=== PATIENT | male | born 1985 | race Caucasian/White ===

== ENCOUNTER 2021-02-06 09:22 | Outpatient (REF) | payer MEDICAID, SELFPAY ==
[2021-02-06 10:41] LABS: C Diff PCR Negative (Negative)
== END 2021-02-06 09:23 | disposition home or self-care (01) ==
LOC: LBN 09:22
PROVIDERS: Visit Provider Surgery
DX: K21.9 Gastro-esophageal reflux disease without esophagitis (principal); K29.80 Duodenitis without bleeding; K57.32 Diverticulitis of large intestine without perforation or abscess without bleeding
CPT/HCPCS: 87493

== ENCOUNTER 2021-04-09 12:52 | Emergency (ER) | payer MEDICAID, SELFPAY ==
[2021-04-09 12:57] VITALS: BP 151/86; PULSE 80; RESP 16; O2SAT 98
--- NOTE | 2021-04-09 14:24 | ED.GENADUL_ITS ---
Discharge Plan Disposition Patient Disposition: HOME Condition: Good Discharge Details Clinical Impression: Injury of left shoulder Primary Care Provider: Krystian Ervin ED Provider: Chayo Rosales Home Meds and New Rx's Prescriptions: No Action pantoprazole [Protonix] 40 mg tablet,delayed release (DR/EC) 40 mg PO DAILY Qty: 30 RF: 12 sucralfate [Carafate] 1 gram tablet 1 g PO QACHS Qty: 120 RF: 12 Bio-K plus 50 billion cell capsule,delayed release(DR/EC) 1 cap PO DAILY Qty: 30 RF: 12 celecoxib [Celebrex] 400 mg Capsule 400 mg PO DAILY RF: 0 pregabalin [Lyrica] 75 mg Capsule 75 mg PO TID RF: 0 Discharge Instructions Instructions: Shoulder Sprain (ED) Additional Instructions: You may apply Voltaren gel topically to the area of tenderness Continue to range shoulder so it does not become stiff Negative listed orthopedics need to follow-up with, try not to engage in any repetitive motion Return earlier should you develop new or worsening complaints including strength change, worsening paresthesias Referrals: Richard Loving MD [ [facility] STAFF PHYSICIAN] - Discharge Data Discharge Date/Time-TO BE ENTERED AT DEPARTURE: 04/09/21 15:10 Medical Decision Making Patient without acute abnormality on x-ray, referred to orthopedics per radiology interpretation of my review negative x-ray Declined sling No indication for emergent MRI, no weakness or concerning pathology for cervical trauma at this time Ibuprofen and Tylenol as needed for pain tolerated Repeat imaging or evaluation in 1 week with persistent symptoms recommended Work note supplied Neurologically intact aside from mildly diminished sensation which sounds like baseline for patient No worrisome findings on my exam today will need outpatient reevaluation Distal pulses intact bilateral upper extremities Differential Diagnosis Differential Diagnosis: Fracture, cervical strain, cervical radiculopathy, shoulder fracture HPI General Mode of arrival: ambulatory . Date/Time Provider Initiated Documentation: 04/09/21 13:03 . Limitations to Documentation: no limitations . Information obtained by: patient . HPI Narrative: This 35-year-old male presents with left shoulder pain with radiation into his left arm. He denies any chest pain or shortness of breath. He denies dizziness or weakness. He has a history of cervical radiculopathy, he states that he has slight increase paresthesias to his left arm. He states the majority of his pain is around the AC joint and left shoulder. He states his arm feels more uncomfortable if he ranges it. He denies any additional complaints. Denies any chest pain shortness of breath, dizziness, weakness, nausea vomiting Related Data Home Medications Medication Instructions Recorded Confirmed L. acidophilus,casei,rhamnosus 50 1 cap PO DAILY #30 cap 02/05/21 02/05/21 billion cell capsule,delayed release pantoprazole 40 mg tablet,delayed 40 mg PO DAILY #30 tab 02/05/21 04/09/21 release sucralfate 1 gram tablet 1 g PO QACHS #120 tab 02/05/21 04/09/21 celecoxib [Celebrex] 400 mg PO DAILY 04/09/21 04/09/21 pregabalin [Lyrica] 75 mg PO TID 04/09/21 04/09/21 Previous Rx's Medication Instructions Recorded L. acidophilus,casei,rhamnosus 50 1 cap PO DAILY #30 cap 02/05/21 billion cell capsule,delayed release pantoprazole 40 mg tablet,delayed 40 mg PO DAILY #30 tab 02/05/21 release sucralfate 1 gram tablet 1 g PO QACHS #120 tab 02/05/21 Allergies Allergy/AdvReac Type Severity Reaction Status Date / Time acetaminophen [From [place]] Allergy insomnia Verified 04/09/21 13:02 cortisone Allergy prolonged Verified 04/09/21 13:02 burning after injection hydrocodone [From [place]] Allergy insomnia Verified 04/09/21 13:02 General Stated Complaint: Orthopedic VERENICE: 3 Review of Systems Narrative: Review of systems obtained x7 aside from where indicated in [facility] Social History (Updated 02/05/21 @ 13:25 by Kaylin Monroe RN, RN) Smoking/Tobacco Use Status: Never Smoking risk assessment performed?: Yes Alcohol Intake: current Alcohol Intake frequency: holidays/special occasions only Drug use: Never Substance use type: does not use Do you feel safe at home: Yes Do you feel safe in your relationship?: Yes Exam Const General: cooperative, comfortable and no acute distress Neck Other: no midline tenderness, no paraspinal tenderness Resp Effort & Inspection: normal respiratory effort Cardio Rate: regular rate Neuro General: patient alert and patient oriented x3 Other: DTRs intact bilateral upper extremities, sensation mildly diminished to left forearm and bicep region Hand grasp intact bilaterally Strength intact bilaterally to upper extremities emergently Extrem Other: Mild tenderness to left clavicle, AC joint region, and over the long head of biceps tendon, negative empty can sign, no visible swelling or evidence of trauma, no erythema Distal pulses intact all extremities Course Vital Signs Vital signs: Vital Signs Pulse 80 04/09/21 12:57 Respiratory Rate 16 04/09/21 12:57 Blood Pressure 151/86 H 04/09/21 12:57 Pulse Oximetry 98 04/09/21 12:57 Pulse 80 04/09/21 12:57 Respiratory Rate 16 04/09/21 12:57 Respiratory Effort Non-Labored 04/09/21 13:06 Blood Pressure 151/86 H 04/09/21 12:57 Blood Pressure Position Sitting 04/09/21 12:57 Pulse Oximetry 98 04/09/21 12:57 Oxygen Delivery Method Room Air 04/09/21 12:57 Oxygen Flow Rate 0 04/09/21 12:57 Pain Level 7 04/09/21 12:57
--- NOTE | 2021-04-09 14:51 | DI.RAD_ITS ---
Exam(s) XR SHOULDER LT COMPLETE 2+V EXAM: XR SHOULDER LT COMPLETE 2+V CLINICAL HISTORY: left shoulder pain. TECHNIQUE: 2D digital imaging was performed. COMPARISON: No exams were available for comparison FINDINGS: There is no evidence of fracture or dislocation or abnormal soft tissue calcifications. No degenerat vickey changes in the glenohumeral and AC joints. Visualized humerus appears unremarkable. AC joint ap pears unremarkable and there is no ipsilateral clavicle fracture. IMPRESSION: No fracture evident DATA REPOSITORY: RADIATION DOSE DELIVERED:
[2021-04-09 15:05] VITALS: BP 137/86; PULSE 80; RESP 16; TEMP 36.4; O2SAT 97
== END 2021-04-09 15:10 | disposition home or self-care (01) ==
PROVIDERS: Emergency Provider Physician Assistant; PCP Physician Assistant
DX: S49.82XA Other specified injuries of left shoulder and upper arm, initial encounter (principal); X50.9XXA Other and unspecified overexertion or strenuous movements or postures, initial encounter; R20.2 Paresthesia of skin
CPT/HCPCS: 99283; 73030

== ENCOUNTER 2021-05-18 04:47 | Outpatient (CLI) | payer MEDICAID, SELFPAY ==
--- NOTE | 2021-05-18 09:00 | DI.MRI_ITS ---
Exam(s) MR UPPER JOINT LT WO EXAM: MR UPPER JOINT LT WO CLINICAL HISTORY: INJURY, LT SHOULDER PAIN, M25.512,[id number]. TECHNIQUE: Multiplanar multisequence MRI was performed. COMPARISON: Plain films 09 April 2021 FINDINGS: BONES: There is no fracture or contusion pattern. JOINTS: The acromioclavicular joint is normal. The glenohumeral joint is normal. TENDONS: Supraspinatus: Thickening and edema in the anterior portion of the tendon. No focal tear.. Infraspinatus: Unremarkable. Subscapularis: Unremarkable. Teres [place]: Unremarkable. Biceps and [place]: Unremarkable. MUSCLES: Unremarkable. No atrophy. GLENOID LABRUM: Unremarkable on this noncontrast examination. SOFT TISSUES: Unremarkable. OTHER: Subacromial and subdeltoid bursae show mild edema. IMPRESSION: Tendinosis of the anterior supraspinatus tendon. DATA REPOSITORY:
== END 2021-05-18 05:07 ==
PROVIDERS: PCP Physician Assistant; Visit Provider Student in an Organized Health Care Education/Training Program
DX: M67.814 Other specified disorders of tendon, left shoulder; S49.92XA Unspecified injury of left shoulder and upper arm, initial encounter; X58.XXXA Exposure to other specified factors, initial encounter
CPT/HCPCS: 73221

== ENCOUNTER 2021-07-09 17:02 | Emergency (ER) | payer MEDICAID, SELFPAY ==
[2021-07-09 17:05] VITALS: BP 135/90; PULSE 82; RESP 16; TEMP 36.8; O2SAT 98
--- NOTE | 2021-07-09 17:11 | ED.GENADUL_ITS ---
Discharge Plan Disposition Patient Disposition: HOME Condition: Stable Discharge Details Clinical Impression: Paronychia, Cellulitis Primary Care Provider: Krystian Ervin ED Provider: Kadie Merlos Home Meds and New Rx's Prescriptions: New cephalexin 500 mg capsule 500 mg PO BID Qty: 10 RF: 0 Continued pantoprazole [Protonix] 40 mg tablet,delayed release (DR/EC) 40 mg PO DAILY Qty: 30 RF: 12 sucralfate [Carafate] 1 gram tablet 1 g PO QACHS Qty: 120 RF: 12 Bio-K plus 50 billion cell capsule,delayed release(DR/EC) 1 cap PO DAILY Qty: 30 RF: 12 celecoxib [Celebrex] 400 mg Capsule 400 mg PO DAILY RF: 0 pregabalin [Lyrica] 75 mg Capsule 75 mg PO TID RF: 0 Discharge Instructions Instructions: Paronychia (ED), Cellulitis (ED) Additional Instructions: Your exam and history is most consistent with a paronychia. Please soak your foot 4-5 times daily. Please take the antibiotic surrounding cellulitis as prescribed. Even symptoms improve, please take the entire course. You may use Tylenol and ibuprofen as needed for discomfort. If you develop fever/chills, spreading of the redness or the new/worsening symptoms please seek care urgently once again. Referral for primary care follow-up has been sent. Please follow- up with them in 1 weeks for reevaluation Referrals: Krystian Ervin [Primary Care Provider] - Medical Decision Making Patient is a pleasant 35-year-old male presenting today with chief complaint of right great toe pain. He reports that 2 days ago he began noting the pain. States that he dropped a piece of firewood on his toe. Since then he has noted erythema and drainage from the nailbed. Has been digging out his toenail tenderness with clear drainage. No fevers or chills. On exam, his toe appears more consistent with a paronychia rather than trauma. The area around this is erythematous, he reports the erythema has been spreading. Paronychia appears to be open and draining. I do not see need for further intervention immediately. I did encourage multiple soaks daily. Advised he needs Tylenol and ibuprofen as needed for discomfort. If the erythema has been spreading, I am concerned for potential cellulitis we will begin him on Keflex. Advise follow-up with primary care in 1 week. Asked care management to assist with this this patient states he has had difficulty getting in touch with his primary care physician. Return precautions were discussed. All questions and concerns were addressed he is in agreement with plan HPI General Mode of arrival: ambulatory . Date/Time Provider Initiated Documentation: 07/09/21 17:02 . Limitations to Documentation: no limitations . Information obtained by: patient and RN notes reviewed . History of Present Illness 35 year old M presents to the emergency department with the chief complaint of right great toe pain, erythema, discharge, described as severe, with intensity rated at 8. Quality is described as aching, and is localized to the right and lower extremity. Patient reports no radiation. Patient started experiencing this day(s) and it has been constant. Immobilization improves symptom(s), Movement worsens symptoms . Patient notes no other sym ptoms.. Patient did receive the following treatments prior to arrival, none Related Data Home Medications Medication Instructions Recorded Confirmed L. acidophilus,casei,rhamnosus 50 1 cap PO DAILY #30 cap 02/05/21 07/09/21 billion cell capsule,delayed release pantoprazole 40 mg tablet,delayed 40 mg PO DAILY #30 tab 02/05/21 07/09/21 release sucralfate 1 gram tablet 1 g PO QACHS #120 tab 02/05/21 07/09/21 celecoxib [Celebrex] 400 mg PO DAILY 04/09/21 07/09/21 pregabalin [Lyrica] 75 mg PO TID 04/09/21 07/09/21 cephalexin 500 mg PO BID #10 cap 07/09/21 Previous Rx's Medication Instructions Recorded L. acidophilus,casei,rhamnosus 50 1 cap PO DAILY #30 cap 02/05/21 billion cell capsule,delayed release pantoprazole 40 mg tablet,delayed 40 mg PO DAILY #30 tab 02/05/21 release sucralfate 1 gram tablet 1 g PO QACHS #120 tab 02/05/21 cephalexin 500 mg PO BID #10 cap 07/09/21 Allergies Allergy/AdvReac Type Severity Reaction Status Date / Time acetaminophen [From [place]] AdvReac insomnia Verified 07/09/21 17:18 cortisone AdvReac prolonged Verified 07/09/21 17:18 burning after injection hydrocodone [From [place]] AdvReac insomnia Verified 07/09/21 17:18 General Stated Complaint: Cellulitis VERENICE: 4 Review of Systems Constitutional Constitutional: Reports as per HPI, Denies chills, Denies fever(s) and Denies weakness Respiratory Respiratory: Reports as per HPI and Denies cough Musculoskeletal Musculoskeletal: Reports as per HPI and Denies tingling Integumentary/Breasts Skin/Breast: Reports as per HPI, Reports erythema and Reports wounds Neurologic Neurologic: Reports as per HPI, Denies tingling, Denies paresthesias and Denies weakness [facility] Social History Smoking/Tobacco Use Status: Never Smoking risk assessment performed?: Yes Alcohol Intake: current Alcohol Intake frequency: holidays/special occasions only Drug use: Never Substance use type: does not use Current gender identity: male Do you feel safe at home: Yes Do you feel safe in your relationship?: Yes Exam Const General: cooperative, healthy appearing, comfortable, no acute distress, well developed and well groomed Nutritional Appearance: well nourished and overweight Orientation: alert and awake Resp Effort & Inspection: normal respiratory effort, able to speak in complete sentences and no respiratory distress Cardio Rate: regular rate Rhythm: regular rhythm Skin General skin exam: erythema Neuro General: patient alert and patient awake Cognition: normal cognition Speech: speech normal Gait: normal gait Motor: muscle tone normal throughout Sensory Exam: no sensory deficits noted Extrem Ankle/foot/toe images: 1. Area of erythema and warmth. Patient discussed the discharge from the area 1 male attaches laterally. No further purulent discharge is able to be expressed. Concern for ecchymosis but this appeared to have been dirt was cleaned out by myself with alcohol swab. No deformity. Psych Appearance: grossly normal and well kempt Mental Status: mental status grossly normal Speech and Movement: speech and movement normal Course Vital Signs Vital signs: Vital Signs Temperature 36.8 C 07/09/21 17:05 Pulse 82 07/09/21 17:05 Respiratory Rate 16 07/09/21 17:05 Blood Pressure 135/90 07/09/21 17:05 Pulse Oximetry 98 07/09/21 17:05 Temperature 36.8 C 07/09/21 17:05 Temperature Source Temporal Artery Scan 07/09/21 17:05 Pulse 82 07/09/21 17:05 Respiratory Rate 16 09/13/21 17:05 Blood Pressure 135/90 07/09/21 17:05 Blood Pressure Position Supine 07/09/21 17:05 Pulse Oximetry 98 07/09/21 17:05 Oxygen Delivery Method Room Air 07/09/21 17:05 Oxygen Flow Rate 0 07/09/21 17:05 Pain Level 8 07/09/21 17:05
[2021-07-09 17:32] VITALS: BP 135/90; PULSE 82; RESP 16; TEMP 36.8; O2SAT 98
--- NOTE | 2021-07-09 17:37 | NUR.NOTE ---
Nursing Note: Faxed to PCP, Krystian Ervin [facility] referral for follow up next week for cellulitis. Kayla Amor
== END 2021-07-09 17:40 | disposition home or self-care (01) ==
PROVIDERS: Emergency Provider Physician Assistant; PCP Physician Assistant
DX: L03.031 Cellulitis of right toe (principal)
CPT/HCPCS: 99283

== ENCOUNTER 2021-10-08 11:32 | Outpatient (REF) | payer MEDICAID, SELFPAY ==
[2021-10-09 20:08] LABS: COVID-19 RT-PCR UVMMC Result Negative (Negative)
== END 2021-10-08 11:33 | disposition home or self-care (01) ==
LOC: LBN 11:32
PROVIDERS: PCP Physician Assistant; Visit Provider Physician Assistant Medical
DX: Z20.822 Contact with and (suspected) exposure to COVID-19 (principal); J02.9 Acute pharyngitis, unspecified
CPT/HCPCS: U0003

== ENCOUNTER 2022-05-14 14:19 | Emergency (ER) | payer MEDICAID, SELFPAY ==
[2022-05-14 14:29] VITALS: BP 151/83; PULSE 85; RESP 16; TEMP 37.6; O2SAT 99
--- NOTE | 2022-05-14 15:12 | DI.RAD_ITS ---
Exam(s) XR SHOULDER LT COMPLETE 2+V EXAM: XR SHOULDER LT COMPLETE 2+V CLINICAL HISTORY: shoulder trauma last friday. TECHNIQUE: 2D digital imaging was performed. COMPARISON: CR XR SHOULDER LT COMPLETE 2+V from 04/09/2021 FINDINGS: Four views No evidence of fracture or dislocation. No abnormal soft tissue calcifications. Subacromial space u nremarkable. AC joint unremarkable. Bone density normal. No osseous lesions. IMPRESSION: No significant findings DATA REPOSITORY: RADIATION DOSE DELIVERED:
--- NOTE | 2022-05-14 16:19 | ED.GENADUL_ITS ---
Discharge Plan Disposition Patient Disposition: HOME Condition: Stable Discharge Details Clinical Impression: Left shoulder strain, Cervical radiculopathy, Cervical myofascial strain Primary Care Provider: Krystian Ervin ED Provider: Kerline Becker Home Meds and New Rx's Prescriptions: New methocarbamol 500 mg tablet 500 mg PO Q6H PRN (Reason: muscle spasm) Qty: 14 0RF prednisone 20 mg tablet See Rx Instructions .ROUTE .COMPLEX Qty: 18 0RF Rx Instructions: Take 3 tabs daily for 3 days, then 2 tabs daily for 3 days, then 1 tab daily for 3 days. Continued sucralfate [Carafate] 1 gram tablet 1 g PO QACHS Qty: 120 12RF Bio-K plus 50 billion cell capsule,delayed release(DR/EC) 1 cap PO DAILY Qty: 30 12RF pantoprazole 40 mg tablet,delayed release (DR/EC) See Rx Instructions .ROUTE .COMPLEX Qty: 240 0RF Dose Instruction: TAKE ONE TABLET BY MOUTH EVERY DAY Rx Instructions: TAKE ONE TABLET BY MOUTH EVERY DAY celecoxib [Celebrex] 400 mg Capsule 400 mg PO DAILY pregabalin [Lyrica] 75 mg Capsule 75 mg PO TID Discontinued cyclobenzaprine 10 mg tablet 1 tab PO BID PRN Label Comments: TAKE ONE TABLET BY MOUTH TWICE A DAY NEEDED Discharge Instructions Instructions: Cervical Strain (ED), Shoulder Sprain (ED), Cervical Radiculopathy (ED) Additional Instructions: Your x-ray today is reassuring and shows no evidence of acute concerning or significant findings. Your symptoms may be due to a cervical or shoulder strain. Other possibilities include cervical disc herniation or rotator cuff tear. Prescriptions for steroids and muscle relaxants have been sent electronically to your pharmacy. You can also continue to alternate Tylenol and Motrin as needed and directed for pain. Alternate ice and heat to the affected area(s) several times daily for 20 minutes at a time. You have been placed on care management list to help arrange for a follow-up appointment with your primary care doctor for reevaluation and for referral for outpatient cervical spine or shoulder MRI if indicated. You may need further evaluation by pain management and/or physical therapy. Return immediately to the emergency department if you develop any worsening or n ew concerning symptoms. Referrals: Richard Loving MD [ [facility] STAFF PHYSICIAN] - Discharge Data Discharge Date/Time-TO BE ENTERED AT DEPARTURE: 05/14/22 17:41 Discharge Physician: Kerline Becker Medical Decision Making 36yo M w/ a history of chronic neck pain and bilateral cervical radiculopathy with history of impingement syndrome of left shoulder, tendinitis of left biceps with history of cervical spine fusion and arthroscopy of right shoulder presents with neck and left shoulder and arm pain with tingling in his forearm to hand after lifting an approximate 500 pound log at work 1 week ago. Patient arrived to the ED during time of high acuity and volume and was referred for shoulder x-ray which was unremarkable. He has pain with range of motion in his left shoulder most specifically past abduction at 90 degrees. He is able to internally externally rotate. He has tenderness palpation to the left cervical paraspinal region but essentially normal cervical range of motion. His muscle strength is 5/5 bilateral upper extremities without focal deficits and is otherwise neurovascularly intact. There is no evidence of cellulitis or trauma to his left upper extremity. Discussed with patient that we can place him on care management list to help arrange for a follow-up appointment with his primary care doctor for reevaluation and for referral for outpatient cervical spine or shoulder MRI to rule out disc herniation or rotator cuff injury but do not see an acute need for transfer for cervical spine MRI as he has no focal deficits. Patient is agreeable with this plan. He states he has taken p.o. steroids in the past without difficulty. He was given a dose of oral steroids here and he is driving home and was given Valium to go. Prescriptions for steroids and muscle relaxer sent electronically to his pharmacy. He was given a 2 tabs tramadol bottle to go. Usual and customary return precautions given prior to discharge. HPI General Mode of arrival: ambulatory . Date/Time Provider Initiated Documentation: 05/14/22 14:36 . Limitations to Documentation: no limitations . Information obtained by: patient . HPI Narrative: Patient is a 36-year-old male with a history of chronic neck pain and bilateral cervical radiculopathy with history of impingement syndrome of left shoulder, tendinitis of left biceps with history of cervical spine fusion and arthroscopy of right shoulder presents with neck and left shoulder pain extending to his left elbow with tingling in his forearm and hand for the past week after pulling an approximately 500 pound log at work. Patient states he has seen his chiropractor who tried to refer him for an outpatient MRI but was unable. Patient states he is unable to get into his PCP for the next 8 to 9 months. He states he has taken Tylenol and ibuprofen without relief. He denies any fever. He states he is able to move his arm to approximately 90 degrees but has increased pain past this point and especially with lifting any weight. Related Data Home Medications Medication Instructions Recorded Confirmed L. acidophilus,casei,rhamnosus 50 1 cap PO DAILY #30 caps 02/05/21 07/09/21 billion cell capsule,delayed release (Bio-K plus) sucralfate 1 gram tablet (Carafate) 1 g PO QACHS #120 tabs 02/05/21 07/09/21 celecoxib 400 mg capsule (Celebrex) 400 mg PO DAILY 04/09/21 07/09/21 pregabalin 75 mg capsule (Lyrica) 75 mg PO TID 04/09/21 07/09/21 pantoprazole 40 mg tablet,delayed See Rx Instructions .Route 01/22/22 release .COMPLEX #240 tabs methocarbamol 500 mg tablet 500 mg PO Q6H PRN muscle spasm #14 05/14/22 tabs prednisone 20 mg tablet See Rx Instructions .Route 05/14/22 .COMPLEX #18 tabs Previous Rx's Medication Instructions Recorded L. acidophilus,casei,rhamnosus 50 1 cap PO DAILY #30 caps 02/05/21 billion cell capsule,delayed release (Bio-K plus) sucralfate 1 gram tablet (Carafate) 1 g PO QACHS #120 tabs 02/05/21 pantoprazole 40 mg tablet,delayed See Rx Instructions .Route 01/22/22 release .COMPLEX #240 tabs methocarbamol 500 mg tablet 500 mg PO Q6H PRN muscle spasm #14 05/14/22 tabs prednisone 20 mg tablet See Rx Instructions .Route 05/14/22 .COMPLEX #18 tabs Allergies Allergy/AdvReac Type Severity Reaction Status Date / Time acetaminophen [From Gary] AdvReac insomnia Verified 05/14/22 14:32 cortisone AdvReac prolonged Verified 05/14/22 14:32 burning after injection hydrocodone [From Gary] AdvReac insomnia Verified 05/14/22 14:32 General Stated Complaint: Orthopedic VERENICE: 4 Review of Systems All systems reviewed & are unremarkable except as noted in HPI and below Constitutional Constitutional: Reports as per HPI, Denies chills and Denies fever(s) Eyes Eyes: Denies blurry vision ENT Ears, Nose, Mouth, and Throat: Denies dizziness, Denies sore throat and Denies throat swelling Cardiovascular Cardiovascular: Denies chest pain and Denies dyspnea Respiratory Respiratory: Denies cough and Denies dyspnea Gastrointestinal Gastrointestinal: Denies abdominal pain, Denies diarrhea and Denies vomiting Genitourinary Genitourinary: Denies hematuria and Denies dysuria Musculoskeletal Musculoskeletal: Denies back pain and Denies numbness Comments: L shoulder, upper arm pain, L forearm, hand tingling Integumentary/Breasts Skin/Breast: Denies lesions and Denies rash Neurologic Neurologic: Denies dizziness, Denies localized weakness and Denies numbness Allergic/Immunologic Allergic/Immunologic: Denies throat swelling PFSH All Active Problems (Updated 05/14/22 @ 17:26 by Kerline Becker DO) Cervical myofascial strain (Acute) Left shoulder strain (Acute) Cervical radiculopathy (Acute) Chronic tonsillitis (Acute) Paronychia (Acute) Cellulitis (Acute) Injury of left shoulder (Acute) Diverticulitis large intestine (Acute) Duodenitis due to chemical exposure (Acute) NSAID Esophagitis determined by endoscopy (Acute) Antibiotic-associated diarrhea (Acute) Medical History (Updated 05/14/22 @ 17:26 by Kerline Becker DO) Bursitis of left shoulder Cervical radiculopathy Chronic GERD Cubital bursitis of left elbow Hiatal hernia with GERD Impingement syndrome of left shoulder Tendinitis of long head of biceps brachii of left shoulder Surgical History (Updated 05/14/22 @ 17:24 by Kerline Becker DO) History of fusion of cervical spine S/P arthroscopy of right shoulder (03/22/20) [facility] 03/22/2020 Social History Smoking/Tobacco Use Status: Never Smoking risk assessment performed?: Yes Alcohol Intake: current Alcohol Intake frequency: holidays/special occasions only Drug use: Never Substance use type: does not use Current gender identity: male Do you feel safe at home: Yes Do you feel safe in your relationship?: Yes Exam Const General: cooperative, healthy appearing and no acute distress Orientation: alert, awake and oriented x3 HENMT Head: normal to inspection Mouth: oral mucosae normal Eyes General: appearance normal, both eyes and all related structures Neck Neck: normal visual inspection Resp Effort & Inspection: normal respiratory effort and able to speak in complete sentences Cardio Rate: regular rate Skin General skin exam: no rashes or lesions noted Neuro General: patient alert, patient awake and patient oriented x3 Motor: muscle tone normal throughout Extrem Other: Pain reproducible and left-sided cervical paraspinal region with range of motion of head and movement of left upper extremity past 90 degrees abduction. Muscle strength 5/5 bilateral upper extremities. Bilateral radial and ulnar pulses intact. Psych Appearance: grossly normal Affect: normal affect Course Vital Signs Vital signs: Vital Signs Temperature 99.7 F H 05/14/22 14:29 Pulse 85 05/14/22 14:29 Respiratory Rate 16 05/14/22 14:29 Blood Pressure 151/83 H 05/14/22 14:29 Pulse Oximetry 99 05/14/22 14:29 Temperature 99.7 F H 05/14/22 14:29 Temperature Source Oral 05/14/22 14:29 Pulse 85 05/14/22 14:29 Respiratory Rate 16 05/14/22 14:29 Respiratory Effort Non-Labored 05/14/22 14:34 Blood Pressure 151/83 H 05/14/22 14:29 Pulse Oximetry 99 05/14/22 14:29 Pain Level 5 05/14/22 14:29
[2022-05-14] MEDS: diazePAM 5 MG TAB PO (17:25)
[2022-05-14] MEDS: predniSONE 20 MG TAB 60 MG PO (17:25)
--- NOTE | 2022-05-14 17:28 | NUR.NOTE ---
Nursing Note: Referral faxed to PCP (Krystian Ervin who he states he does not want to see) for shoulder/neck strain, within 2 weeks.
== END 2022-05-14 17:41 | disposition home or self-care (01) ==
PROVIDERS: Emergency Provider Physician Assistant; PCP Physician Assistant
DX: S46.812A Strain of other muscles, fascia and tendons at shoulder and upper arm level, left arm, initial encounter (principal); M54.12 Radiculopathy, cervical region; S16.1XXA Strain of muscle, fascia and tendon at neck level, initial encounter; X50.0XXA Overexertion from strenuous movement or load, initial encounter; Y99.0 Civilian activity done for income or pay
CPT/HCPCS: 99283; 73030; J7512

== ENCOUNTER 2022-08-29 08:19 | Day surgery (SDC) | payer MEDICAID, SELFPAY ==
[2022-08-29] VITALS (14 sets, daily range): BP systolic 90–126; BP diastolic 46–86; PULSE 61–70; RESP 15–23; TEMP 36.1–36.9; O2SAT 91–100; BMI 28.8
[2022-08-29] MEDS: Lactated Ringers 1,000 ML 30 ML IV (09:06)
--- NOTE | 2022-08-29 09:57 | W.ANESPRE ---
General Info Date of Service Date Performed: 08/29/22 Height: 5 ft 9 in Weight: 88.6 kg Body Mass Index (BMI): 28.8 Surgical Procedure: Operation Date: 08/29/22 10:25 Proposed Procedure Side Surgeon p Shoulder Arthroscopy w/Extensive Debridement,Biceps Tenodesis and Subacromial Decompression Left Bertram Frazier MD Meds Allergies and Home Medications Allergies Allergy/AdvReac Type Severity Reaction Status Date / Time cortisone AdvReac prolonged Verified 08/27/22 15:15 burning after injection hydrocodone [From Douglas] AdvReac insomnia Verified 08/27/22 15:15 Home Medication Medication Instructions Recorded pantoprazole 40 mg tablet,delayed See Rx Instructions .Route 01/22/22 release .COMPLEX #240 tabs cyclobenzaprine 5 mg tablet 5 mg PO QHS 06/11/22 aspirin 81 mg tablet,delayed 81 mg PO DAILY prevent blood clot 08/29/22 release 7 days #7 tabs naproxen 250 mg tablet 250 - 500 mg PO BID PRN #40 tabs 08/29/22 oxycodone 5 mg tablet 5 - 10 mg PO Q4H PRN moderate to 08/29/22 severe pain #18 tabs Current Visit Medications: Current Medications Generic Name Dose Route Start Last Admin Trade Name Freq PRN Reason Stop Dose Admin Ringer's Solution 1,000 mls @ 30 mls/hr 08/29/22 06:00 08/29/22 09:06 IV 09/27/22 23:59 30 mls/hr INFUSION ADELA Administration Cefazolin Sodium/Dextrose 2 gm in 50 mls @ 100 mls/hr 08/29/22 06:00 Ancef Duplex IVPB 08/29/22 16:00 PREOP ADELA IV Miscellaneous Supplies 1 each 08/29/22 06:00 Iv Access IV 09/27/22 23:59 DIRECTED ADELA Oxycodone HCl 0 mg 08/29/22 07:08 Oxycodone 5 Mg Tab PO Q3H PRN PRN Pain Sodium Chloride 0 ml 08/29/22 06:00 Normal Saline Flush 10 Ml Syr IV 09/27/22 23:59 PRN PRN Sodium Chloride 0 ml 08/29/22 06:00 Normal Saline 10 Ml Vial IJ 09/27/22 23:59 DIRECTED PRN Sterile Water 0 ml 08/29/22 06:00 Water,Injection,Sterile 10 Ml Vial IJ 09/27/22 23:59 DIRECTED PRN PFSH Active Problems Active Problems: Problem Status Onset Code Antibiotic-associated diarrhea K52.1, T36.95XA Esophagitis determined by endoscopy K20.90 Duodenitis due to chemical exposure K29.80, Z77.098 Diverticulitis large intestine K57.32 Injury of left shoulder S49.92XA Bursitis of left shoulder M75.52 Paronychia Cellulitis L03.90 Chronic tonsillitis J35.01 SLAP lesion of left shoulder S43.432A Medical History Medical History Cervical radiculopathy Chronic GERD Cubital bursitis of left elbow Hiatal hernia with GERD Impingement syndrome of left shoulder Tendinitis of long head of biceps brachii of left shoulder Surgical History Surgical History History of fusion of cervical spine per patient has never had a cervical fusion History of surgery ORIF right small finger History of tonsillectomy S/P arthroscopy of right shoulder (03/22/20) [facility] 03/22/2020 Tobacco Smoking/Tobacco Use Status: Never Alcohol Alcohol Intake: current Alcohol intake frequency: holidays/special occasions only Substance Use Substance use: Never Substance use type: does not use Vital Signs and Lab Results Vital Signs Most Recent Vital Signs in EMR: Most Recent Vital Signs Temp Pulse Resp BP Pulse Ox 36.2 C L 68 18 120/85 98 08/29/22 08:30 08/29/22 08:30 08/29/22 08:30 08/29/22 08:30 08/29/22 08:30 Lab Results Blood Type / Crossmatch: No Data to Display Complete Blood Count: No Data to Display Complete Metabolic Panel: No Data to Display Liver Function Panel: No Data to Display Coagulation Panel: No Data to Display Cardiac Panel: No Data to Display Arterial Blood Gas: No Data to Display Venous Blood Gas: No Data to Display Pancreas Panel: No Data to Display Thyroid Panel: No Data to Display Infectious Disease: No Data to Display Blood Cultures: No Data to Display Toxicology Panel: No Data to Display Anesthesia Assessment and Plan Anesthesia History Personal History: No History of Anesthesia Complications Family History: No Family History of Anesthesia Complications Exercise Tolerance Exercise Tolerance: Metabolic Equivalents>4 Pertinent Negatives Pertinent Negatives: No Major Cardiovascular Symptoms or Complaints, No Major Pulmonary Symptoms or Complaints and No History of CVA/TIA Cardiac & Pulmonary Exam Cardiac Exam: Normal S1/S2 Heart Sounds Pulmonary Exam: Clear Bilateral Breath Sounds Implantable Cardiac Device Does patient have a Pacemaker or an ICD?: No Airway Exam Known Difficult Airway: No Mallampati Class: 2 Mouth Opening: Normal (> 3cm) Thyromental Distance: Greater than 3 cm Neck Range of Motion: Full ROM Neck Circumference: Normal Teeth Condition: Normal Dentition and Loose or Chipped (One tooth per patient indicated back lower molar) ASA Classification ASA Score: ASA 2 Emergency Case?: No NPO Status NPO Status: NPO Clears >2 hours, Solids >8 hours Anesthesia Plan Resuscitation Status: Full Code Anesthesia Technique: General Anesthesia Airway Planned: Endotracheal Tube Pain Management: Surgeon and patient request nerve block Monitors Used: Standard Monitors
--- NOTE | 2022-08-29 10:19 | W.ANESNERVE ---
Nerve Block Single Injection Procedure Date and Time Date Performed: 08/29/22 Procedure Start: 10:05 Location Where Procedure Performed Procedure Location: Day Surgery Unit Reason Performed: Postoperative Analgesia Requesting Provider: Bertram Frazier Timeout Performed Timeout Performed: Yes Monitoring Used ECG, Blood Pressure and SpO2 Sterility Sterility: Hand Hygiene, Surgical Cap, Surgical Mask, Sterile Gloves and Chlorhexidine Sedation Given During Procedure Sedation Given (Indicate Dose Given): Versed IV Dose:: 2 mg Patient Mental Status Patient Mental Status: Sedate with meaningful communication Nerve Block 1st Nerve Block: Laterality: Left Block Type: Interscalene Needle / Catheter Used: 100mm SonoPlex II Local Anesthetic Bolus (Indicate Dose Given): Lidocaine used for local infiltration of skin, Injected in 3-5ml increments after negative blood aspiration and Bupivacaine 0.5% Dose:: 20 ml Additives (Indicate Dose Given): Normal Saline (for hydrodissection) Ultrasound: Sterile probe cover and gel used Ultrasound Image Saved?: Yes Nerve Stimulator: Supplement to Ultrasound use, Expected parasthesia or motor response elicited and No twitch or parasthesia noted < 0.5 mA Paresthesia: None Post Procedure Pain score (0-10): 0 Procedure Tolerated: No Complications and Patient tolerated well Procedure Outcome: Successful Performed By: Kofi Limon
[2022-08-29] MEDS: ceFAZolin 2 GM/50 ML BAG IVPB (10:27)
[2022-08-29] MEDS: EPINEPHrine 30 MG/30 ML VIAL (11:00)
--- NOTE | 2022-08-29 11:41 | W.PM.DSUDISC ---
Date of service: 08/29/22 Time of Service: 11:41 Discharge Plan Disposition Patient Disposition: HOME Condition: Stable Discharge Details Reason For Visit: Left shoulder surgery Attending Provider: Bertram Frazier Primary Care Provider: Krystian Ervin Home Meds and New Rx's Prescriptions: New aspirin 81 mg tablet,delayed release (DR/EC) 81 mg PO DAILY 7 Days Qty: 7 0RF naproxen 250 mg tablet 250 - 500 mg PO BID PRNQty: 40 0RF Rx Instructions: take with a meal oxycodone 5 mg tablet 5 - 10 mg PO Q4H MDD 30 mg PRN (Reason: moderate to severe pain) Qty: 18 0RF Continued cyclobenzaprine 5 mg tablet 5 mg PO QHS pantoprazole 40 mg tablet,delayed release (DR/EC) See Rx Instructions .ROUTE .COMPLEX Qty: 240 0RF Dose Instruction: TAKE ONE TABLET BY MOUTH EVERY DAY Rx Instructions: TAKE ONE TABLET BY MOUTH EVERY DAY Discharge Instructions Additional Instructions: Surgery: Left shoulder arthroscopy with biceps tenodesis, extensive debridement, and subacromial decompression. Activity: You should gradually increase range of motion motion and use of your shoulder. You may use your shoulder for all regular activities while protecting biceps repair. Avoid any weighted elbow flexion or resisted supination for 6-8 weeks. No heavy lifting, reaching overhead, or lifting away from body for approximately 2-3 months. You may use the sling whenever you are out of the house for a few weeks. At home it is best to remove the sling and rest the arm on a pillow at your side or support the operative side with your other hand. A physical therapy prescription will be sent electronically to start in about 3 weeks. Prescriptions: Aspirin 81 mg take 1 daily to prevent a blood clot for 7 days Naproxen 250 mg take 1-2 every 12 hours with a meal as needed for moderate pain Oxycodone 5 mg take 1-2 every 4-6 hours as needed for severe pain You may use [id number] Tylenol (acetaminophen) as needed for mild pain. These pain medications may be taken all at once or in different combinations as needed. Also, recommend Colace (docusate) as a stool softener as surgery and pain medicine cause constipation. You may try [id number] diphenhydramine (Benadryl) 25-50 mg nightly as a sleep aid Dressings: Remove shoulder bandage after 3 days. Leave the sticky Steri-Strips in place until they fall off or remove them after you shower. Cover the incisions with Band-Aids or leave them open to air. You may shower after 5 days. Follow-up: 10-[address] Frazier You may take off the leg compression stockings this evening at home. You may also leave them on a few days longer if you have a history of leg swelling or edema. Let us know right away if you develop any redness, drainage, fevers, chest pain, or trouble breathing. Do not drink alcohol or drive for at least 24 hours after anesthesia. Please call the office during business hours with any questions or concerns. Discharge Orders Discharge Orders: Discharge Order (Routine); Ordered 08/29/22 Ordered By: Bertram Frazier DS: Diagnosis Discharge Diagnosis (1) SLAP lesion of left shoulder: Status: Acute
[2022-08-29] MEDS: HYDROmorphone 2 MG/ML SYR IVP (12:48)
[2022-08-29] MEDS: Ketorolac 15 MG/ML VIAL IVP (12:56)
--- NOTE | 2022-08-29 13:24 | W.PM.OP ---
Date of service: 08/29/22 Time of Service: 13:23 Operative Note Operative Note DATE OF PROCEDURE: 08/29/22 PRE-OP DIAGNOSIS: Left: 1. SLAP tear 2. Bursitis POST-OP DIAGNOSIS: same PROCEDURE: Left: 1. Arthroscopic biceps tenodesis, CPT# 18847. This involved arthroscopically suturing and reattaching the long head of the biceps tendon to the proximal humerus at the superior margin of the bicipital groove with a screw at the correct tension. 2. Extensive debridement, CPT# 60064. This involved using arthroscopic hand instruments, power instruments, and radiofrequency instruments to release the long head of the biceps tendon and debride areas of anterior and superior labral tearing, adjacent synovitis, and partial articular supraspinatus rotator cuff tearing working within the glenohumeral joint anteriorly, superiorly and posteriorly. 3. Subacromial decompression with partial acromioplasty, CPT# 82561. This involved using arthroscopic power instruments and a radiofrequency wand to complete a bursectomy and smooth bone spur on the undersurface of the acromion. The virtual assistant for advertisers was medically required in order to help assist in techniques above, which require positioning the arm, holding the arthroscope, and manipulating multiple instruments and sutures at the same time. This cannot be done without the help of an experienced virtual assistant for advertisers. SURGEON: Bertram Frazier VULCANIZER: Musa Castano ANESTHESIA TYPE: General LMA/ETT and Primary Nerve Block Refer to Anesthesia Record ESTIMATED BLOOD LOSS: 10 PATHOLOGY: none sent COMPLICATIONS: None Patient was transported to: PACU Patient's condition: stable Implants: Arthrex: BioComposite 4.75mm SwiveLocks x 1 Indications: The patient was diagnosed with the above conditions and appropriately indicated for surgical intervention. Please see complete medical record for details. Findings: Exam under anesthesia: Full range of motion, no instability Glenohumeral joint: Anterior and superior labral tear with unstable biceps anchor. No significant long head biceps tendon injection or inflammation. Mild localized anterior and superior synovitis. Intact subscapularis. Intact articular cartilage. Mild anterior supraspinatus articular rotator cuff tearing. Subacromial space: Mild bursitis and minimal lateral undersurface acromial bone spurring. Mild bursal supraspinatus rotator cuff tearing. Procedure Description: In the operating room, general anesthesia was induced. Bilateral shoulders were examined. The patient was positioned in the beachchair position. All bony prominences were well-padded. Preoperative antibiotics were administered. The shoulder was prepped and draped in the usual sterile fashion. The correct patient, procedure, and side of the procedure were all verified prior to incision. Starting through the posterior portal a standard complete diagnostic arthroscopy was performed of the glenohumeral joint including inspection of the long head of the biceps, anterior and superior labrum, subscapularis tendon, supraspinatus and infraspinatus tendons, and axillary recess. The glenoid and humeral head cartilage as well as the posterior labrum were inspected from an anterior viewing portal. Significant findings and interventions noted above. An all-arthroscopic suprapectoral biceps tenodesis was performed through an anterior portal using a Loop N Tack method with a SutureTape FiberLink cinched around and through the tendon. The biceps was tenotomized from the labrum and fixated with a suture anchor at the superior margin of the bicipital groove. Starting through the posterior portal, the arthroscope was directed into the subacromial space. A lateral 50 yard line lateral portal was created. A combination of power instruments and a radiofrequency ablator were used to debride bursitis anteriorly, posteriorly, and laterally as well as expose and smooth a small amount of prominent bone spurring on the undersurface of the acromion. The coracoacromial ligament was minimally released. The bursectomy was completed viewing laterally and working from posteriorly and the rotator cuff was thoroughly inspected with findings noted above. The shoulder was drained of arthroscopic fluid. All portal sites were copiously irrigated. These incisions were closed using 3-0 Monocryl in a buried fashion and then covered with Mastisol, Steri-Strips, Xeroform, dry gauze, and ABDs. The dressings were covered and secured with Medipore tape. The operative extremity was placed into a sling for immobilization. The patient awoke from anesthesia without complication and was transferred to the recovery room in a stable condition.
[2022-08-29] MEDS: oxyCODONE 5 MG TAB PO (13:42)
--- NOTE | 2022-08-29 15:26 | W.ANESPOSTOP ---
Postoperative Evaluation Date, Time and Location Date Performed: 08/29/22 Time Performed: 15:26 Patient Location: Day Surgery Unit Vital Signs Most Recent Imported Vital Signs: Most Recent Vital Signs Temp Pulse Resp BP Pulse Ox 36.5 C 70 16 117/86 96 08/29/22 14:21 08/29/22 14:21 08/29/22 14:21 08/29/22 14:21 08/29/22 14:21 Pain Score Most Recent Pain Score: Most Recent Pain Score Pain Level 4 08/29/22 14:21 Assessment Mental Status: Awake (Alert & Oriented to Patient Baseline) Airway and Respiratory Function: Patent airway with normal (patient baseline) respiratory exam Cardiovascular Function: Hemodynamically Stable Hydration Status: Adequately Hydrated Nausea & Vomiting: No Nausea or Vomiting Pain: Pain is tolerable per patient Peripheral Nerve Block: Regional nerve block not resolved at time of post operative discharge Postoperative Comments:: Patient stated the block was adequate and what he needed. He reported the last block he had was to dense and he appreciates having some movement in the hands with this block. I did let him know that the presentation is variable and will be slightly different block to block. Reporting mainly axillary and just above anterior axilla discomfort
== END 2022-08-29 14:45 | disposition home or self-care (01) ==
PROVIDERS: PCP Physician Assistant; Visit Provider Student in an Organized Health Care Education/Training Program
PROC: (CPT 29805; principal; 2022-08-29 10:15)
DX: S43.432A Superior glenoid labrum lesion of left shoulder, initial encounter (principal); M75.42 Impingement syndrome of left shoulder; M75.52 Bursitis of left shoulder; M75.22 Bicipital tendinitis, left shoulder; X58.XXXA Exposure to other specified factors, initial encounter
CPT/HCPCS: 29828; 29826; 29823; 76942; J0690; J1100; J1170; J1885; J2250; J2370; J2405; J2704